=== PATIENT | male | born 1980 | race Caucasian/White ===

== ENCOUNTER 2019-04-13 07:36 | Emergency (ER) | payer SELFPAY ==
[~2019-04-13] VITALS: Ht 182.9 cm; Wt 70.0 kg
[~2019-04-13 07:36] MED LIST: AMOXICILLIN500 MG PO; BACTRIM DS1 TAB PO; CEPHALEXIN500 MG PO; ERYTHROMYCIN BAS1 GM OS; FLEXERIL PO; FLEXERIL10 MG OR; LORTAB 5/3255 MG PO; NAPROSYN500 MG OR; NAPROSYN500 MG PO; NO HOME MEDS; PERCOCET 5/325M1 TAB PO; ULTRAM50 MG OR
[2019-04-13 07:59] LABS: HEMATOCRIT 37.6 % (39.0-50.0); HEMOGLOBIN 12.3 g/dl (14.0-18.0); IMMATURE GRANULOCYTES 0.3 % (0.0-5.0); MEAN CELL VOLUME 87.6 fL CALC (80.0-100.0); MEAN CORPUSCULAR HGB 28.7 pG CALC (26.0-32.0); MEAN CORPUSCULAR HGB CONC 32.7 g/L CALC (32.0-36.0); NEUT# 5.89 thou/uL (1.82-7.42); RED BLOOD COUNT 4.29 mill/uL (4.70-6.10); RED CELL DISTRI WIDTH 14.1 % (11.5-15.5)
[2019-04-13 08:11] LABS: ALBUMIN 4.3 g/dL (3.2-5.0); ALKALINE PHOSPHATASE 89 u/l (38-126); ANION GAP 14 (6-22 (CALC)); BUN 18 mg/dL (9-20); BUN/CREATININE RATIO 21 (12-20 (CALC)); CARBON DIOXIDE 26 mmol/l (22-30); CHLORIDE 102 mmol/l (95-108); CREATININE 0.9 mg/dL (0.7-1.3); GFR > 60 ML/MIN (>=60 (CALC)); GFR FOR AFR.AMER. > 60 ML/MIN (>=60 (CALC)); POTASSIUM 3.7 mmol/l (3.5-5.1); SGOT/AST 31 u/l (17-59); SODIUM 139 mmol/l (137-146); TOTAL PROTEIN 7.5 g/dL (6.3-8.2)
[2019-04-13 08:14] LABS: BILIRUBIN, TOTAL 0.7 mg/dL (0.0-1.4)
[2019-04-13 08:34] LABS: BARBITURATES NEGATIVE (NEGATIVE); COCAINE NEGATIVE (NEGATIVE); METHADONE NEGATIVE (NEGATIVE); OXCYCODONE POSITIVE (NEGATIVE); TETRAHYDROCANNABIONOL POSITIVE (NEGATIVE); TRICYLIC ANTIDEPRESSANTS NEGATIVE (NEGATIVE)
[2019-04-13] MEDS ORDERED: TORADOL PO (09:05)
[2019-04-13] MEDS ORDERED: ULTRAM50 M1 PO (09:05)
[2019-04-13 09:34] VITALS: BP 131/85
== END 2019-04-13 09:25 | disposition home or self-care (01) | DRG 206 ==
LOC: ED 07:36
PROVIDERS: Emergency Medicine
DX: S22.31XA Fracture of one rib, right side, initial encounter for closed fracture (principal); S21.101A Unspecified open wound of right front wall of thorax without penetration into thoracic cavity, initial encounter; S29.011A Strain of muscle and tendon of front wall of thorax, initial encounter; R07.89 Other chest pain; W51.XXXA Accidental striking against or bumped into by another person, initial encounter; Y93.61 Activity, american tackle football; Y92.007 Garden or yard of unspecified non-institutional (private) residence as the place of occurrence of the external cause; F15.90 Other stimulant use, unspecified, uncomplicated; F11.90 Opioid use, unspecified, uncomplicated; F12.90 Cannabis use, unspecified, uncomplicated; F19.90 Other psychoactive substance use, unspecified, uncomplicated

== ENCOUNTER 2021-05-05 23:51 | Emergency (ER) | payer SELFPAY ==
[~2021-05-05] VITALS: Ht 182.9 cm; Wt 86.0 kg
[~2021-05-05 23:51] MED LIST changes: +TORADOL PO; +ULTRAM50 M1 PO
[2021-05-06 00:37] LABS: HEMATOCRIT 37.3 % (39.0-50.0); HEMOGLOBIN 12.3 g/dl (14.0-18.0); IMMATURE GRANULOCYTES 0.2 % (0.0-5.0); MEAN CELL VOLUME 83.6 fL CALC (80.0-100.0); MEAN CORPUSCULAR HGB 27.6 pG CALC (26.0-32.0); NEUT# 3.43 thou/uL (1.82-7.42); RED BLOOD COUNT 4.46 mill/uL (4.70-6.10); RED CELL DISTRI WIDTH 13.6 % (11.5-15.5)
[2021-05-06 00:44] LABS: URINE BILIRUBIN - DIPSTICK NEGATIVE (NEGATIVE); URINE BLOOD DIPSTICK NEGATIVE (NEGATIVE); URINE COLOR YELLOW; URINE GLUCOSE - DIPSTICK NEGATIVE (NEGATIVE); URINE KETONE NEGATIVE (NEGATIVE); URINE LEUK ESTERASE NEGATIVE (NEGATIVE); URINE PH 6.5 (4.5-8.0); URINE PROTEIN - DIPSTICK 30 mg/dL (NEG-TRACE); URINE SPECIFIC GRAVITY 1.025
[2021-05-06 00:45] LABS: URINE NITRITE - DIPSTICK NEGATIVE (Negative)
[2021-05-06 00:51] LABS: ALBUMIN 4.4 g/dL (3.2-5.0); ALKALINE PHOSPHATASE 86 u/l (38-126); BUN 22 mg/dL (9-20); BUN/CREATININE RATIO 24 (12-20 (CALC)); CARBON DIOXIDE 28 mmol/l (22-30); CHLORIDE 98 mmol/l (95-108); CREATININE 0.9 mg/dL (0.7-1.3); GFR > 60 ML/MIN (>=60 (CALC)); GFR FOR AFR.AMER. > 60 ML/MIN (>=60 (CALC)); SGOT/AST 40 u/l (17-59); SODIUM 137 mmol/l (137-146); TOTAL PROTEIN 8.4 g/dL (6.3-8.2)
[2021-05-06 00:53] LABS: URINE SQUAMOUS EPITHELIAL CELL FEW EPI/hpf (0-FEW); URINE WBC 0-2 WBC/hpf (0-5)
[2021-05-06 00:53] LABS: ANION GAP 16 (6-22 (CALC)); BILIRUBIN, TOTAL 0.3 mg/dL (0.0-1.4); POTASSIUM 4.7 mmol/l (3.5-5.1)
[2021-05-06] MEDS ORDERED: CEPHALEXIN500 MG PO (01:12)
[2021-05-06] MEDS ORDERED: EMVERM100 MG PO (01:14)
[2021-05-06 01:27] VITALS: BP 154/85
[2021-05-06] MEDS ORDERED: STROMECTOL3 MG PO (09:33)
== END 2021-05-06 01:27 | disposition home or self-care (01) | DRG 372 ==
LOC: ED 23:51
PROVIDERS: Emergency Medicine
DX: B76.9 Hookworm disease, unspecified (principal); L03.116 Cellulitis of left lower limb; L03.115 Cellulitis of right lower limb; F19.10 Other psychoactive substance abuse, uncomplicated; F17.210 Nicotine dependence, cigarettes, uncomplicated

== ENCOUNTER 2022-08-01 13:27 | Emergency (ER) | payer SELFPAY ==
[~2022-08-01] VITALS: Ht 182.9 cm; Wt 83.9 kg
[~2022-08-01 13:27] MED LIST changes: +EMVERM100 MG PO; +STROMECTOL3 MG PO
[2022-08-01] MEDS ORDERED: BACTRIM DS1 TAB PO (13:50)
[2022-08-01 14:13] VITALS: BP 133/87
== END 2022-08-01 14:14 | disposition home or self-care (01) | DRG 605 ==
LOC: ED 13:27
DX: S81.811A Laceration without foreign body, right lower leg, initial encounter (principal); F17.210 Nicotine dependence, cigarettes, uncomplicated; X37.0XXA Hurricane, initial encounter; Y92.821 Forest as the place of occurrence of the external cause; W45.8XXA Other foreign body or object entering through skin, initial encounter

== ENCOUNTER 2022-08-18 17:49 | Emergency (ER) | payer SELFPAY ==
[~2022-08-18] VITALS: Ht 182.9 cm; Wt 85.0 kg
[2022-08-18 18:00] VITALS: BP 109/72
[2022-08-18 18:15] VITALS: BP 112/77
[2022-08-18 18:32] LABS: HEMATOCRIT 34.9 % (39.0-50.0); HEMOGLOBIN 11.7 g/dl (14.0-18.0); IMMATURE GRANULOCYTES 0.3 % (0.0-5.0); MEAN CELL VOLUME 84.7 fL CALC (80.0-100.0); MEAN CORPUSCULAR HGB 28.4 pG CALC (26.0-32.0); MEAN CORPUSCULAR HGB CONC 33.5 g/dL CAL (32.0-36.0); NEUT# 18.59 thou/uL (1.82-7.42); RED BLOOD COUNT 4.12 mill/uL (4.70-6.10); RED CELL DISTRI WIDTH 14.4 % (11.5-15.5)
[2022-08-18 18:40] LABS: ANION GAP 15 (6-22 (CALC)); BUN 23 mg/dL (9-20); BUN/CREATININE RATIO 21 (12-20 (CALC)); CARBON DIOXIDE 27 mmol/l (22-30); CHLORIDE 95 mmol/l (95-108); CREATININE 1.1 mg/dL (0.7-1.3); GFR FOR AFR.AMER. > 60 ML/MIN (>=60 (CALC)); GFR OTHER RACES > 60 ML/MIN (>=60 (CALC)); LIPASE 22 u/l (23-300); POTASSIUM 4.3 mmol/l (3.5-5.1); SODIUM 133 mmol/l (137-146); TOTAL PROTEIN 7.4 g/dL (6.3-8.2)
[2022-08-18 18:44] LABS: ALKALINE PHOSPHATASE 185 u/l (38-126); BILIRUBIN, TOTAL 2.6 mg/dL (0.0-1.4); SGOT/AST 265 u/l (17-59)
[2022-08-18] MEDS ORDERED: VIBRAMYCIN100 M2 PO (20:17)
[2022-08-18] MEDS ORDERED: KEFLEX500 MG PO (20:17)
[2022-08-18] MEDS ORDERED: NAPROXEN500 MG PO (20:17)
[2022-08-18 20:37] VITALS: BP 112/77
[2022-08-18 21:01] LABS: URINE BLOOD DIPSTICK NEGATIVE (NEGATIVE); URINE GLUCOSE - DIPSTICK NEGATIVE (NEGATIVE); URINE KETONE NEGATIVE (NEGATIVE); URINE LEUK ESTERASE NEGATIVE (NEGATIVE); URINE PROTEIN - DIPSTICK 30 mg/dL (NEG-TRACE)
[2022-08-18 21:07] LABS: URINE BILIRUBIN - DIPSTICK MODERATE (NEGATIVE); URINE COLOR DK. YELLOW; URINE NITRITE - DIPSTICK NEGATIVE (Negative)
[2022-08-18 21:14] LABS: URINE RBC 0-2 RBC/hpf (0-5); URINE WBC 0-2 WBC/hpf (0-5)
== END 2022-08-18 23:15 | disposition home or self-care (01) | DRG 605 ==
LOC: ED 17:49
PROVIDERS: Nurse Practitioner
DX: S81.811A Laceration without foreign body, right lower leg, initial encounter (principal); L03.115 Cellulitis of right lower limb; B95.7 Other staphylococcus as the cause of diseases classified elsewhere